=== PATIENT | male | born 1985 | race Caucasian/White ===

== ENCOUNTER 2021-12-03 15:02 | Emergency (ER) | payer SELFPAY ==
[~2021-12-03] VITALS: Ht 170.2 cm; Wt 77.0 kg
[2021-12-03 16:15] LABS: BASOPHILS % (AUTO) 0.3 % (0.0-2.0); EOSINOPHILS % (AUTO) 0 % (1.0-6.0); HEMATOCRIT 45.6 % (41-53); HEMOGLOBIN 15.7 g/dL (13.5-17.5); LYMPHOCYTES # (AUTO) 1.4 K/uL (1.0-4.8); MEAN CORPUSCULAR HEMOGLOBIN 31.4 pg (26.0-34.0); MEAN CORPUSCULAR HGB CONC 34.4 G/dL (31.0-37.0); MEAN CORPUSCULAR VOLUME 91 fL (80-100); MONOCYTES # (AUTO) 1.4 K/uL (0.1-1.0); MONOCYTES % (AUTO) 8.9 % (2.0-9.0); NEUTROPHILS # (AUTO) 13.2 K/uL (1.8-7.7); NEUTROPHILS % (AUTO) 81.8 % (40.0-70.0); PLATELET COUNT (AUTO) 392 K/uL (150-450); RED BLOOD CELL COUNT(AUTO) 4.99 MIL/uL (4.50-5.90)
[2021-12-03] MEDS ORDERED: LORazepam 2 MG/ML VIAL IVP ONE (16:15)
[2021-12-03] MEDS ORDERED: SODIUM CHLORIDE 0.9% 1,000 ML IV ONE (16:15)
[2021-12-03 16:33] LABS: ALANINE AMINOTRANSFERASE 42 U/L (12-78); ALBUMIN 4.5 g/dL (3.4-5.0); ALKALINE PHOSPHATASE 122 U/L (46-116); ANION GAP 14 mmol/L (8-16); ASPARTATE AMINOTRANSFERASE 36 U/L (15-37); BILIRUBIN,TOTAL 0.6 mg/dL (0.1-1.0); CALCIUM, TOTAL 9.2 mg/dL (8.8-10.5); CARBON DIOXIDE 24 mmol/L (22-29); CHLORIDE 104 mmol/L (98-107); CREATININE 1.11 mg/dL (0.60-1.30); GLOMERULAR FILTR. RATE CALC > 60 mL/min (>60); GLUCOSE,RANDOM 105 mg/dL (70-110); POTASSIUM 3.1 mmol/L (3.5-5.1); SODIUM SERUM 142 mmol/L (136-145); TOTAL PROTEIN, SERUM 8.8 g/dL (6.4-8.2)
[2021-12-03 16:44] LABS: UREA NITROGEN, BLOOD 15 mg/dL (7-18)
[2021-12-03] MEDS ORDERED: POTASSIUM CHLORIDE 10% 40 MEQ/30 ML LIQUID UDCUP PO ONE (17:00)
[2021-12-03 17:32] VITALS: BP 129/69
== END 2021-12-03 17:34 | disposition home or self-care (01) ==
LOC: EMS 15:09
DX: F41.0 Panic disorder [episodic paroxysmal anxiety] (principal); F43.29 Adjustment disorder with other symptoms; E87.6 Hypokalemia
CPT/HCPCS: 36415; 80053; 82962; 85025; 93005; 96361; 96374; 99284; G0480; J2060; J7030